=== PATIENT | female | born 1965 | race Caucasian/White ===

== ENCOUNTER 2021-04-21 05:40 | Inpatient (IN) ==
[2021-04-21] MEDS ORDERED: Ondansetron 4 MG/2 ML VIAL IVP PRN (09:39)
[2021-04-21] MEDS ORDERED: Naloxone 0.4 MG/ML INJ IVP PRN (09:39)
[2021-04-21] MEDS ORDERED: *HR* Dextrose 50 % in Water (Syg) 50 ML SYRINGE IVP PRN ×2 (10:39→21:07)
[2021-04-21] MEDS ORDERED: D5% in Water 1,000 ML IVC PRN ×2 (10:39→21:07)
[2021-04-21] MEDS ORDERED: Dextrose 4 GM Chewable Tablets PO PRN ×4 (10:39→21:07)
[2021-04-21] MEDS: Albuterol 2.5 MG/3 ML NEBULIZER IH SCH ×3 (11:28→20:38)
[2021-04-21] MEDS: Insulin LISPRO 300 UNITS/3 ML VIAL SUBQ SCH ×2 (12:53→17:25)
[2021-04-21 12:59] LABS: Adenovirus Not Detected (Not Detect); Bordetella Pertussis Not Detected (Not Detect); Chlamydophila pneumoniae Not Detected (Not Detect); Coronavirus 229E Not Detected (Not Detect); Coronavirus HKU1 Not Detected (Not Detect); Coronavirus NL63 Not Detected (Not Detect); Coronavirus OC43 Not Detected (Not Detect); Human Metapneumovirus Not Detected (Not Detect); Human Rhinovirus/Enterovirus Not Detected (Not Detect); Influenza A Subtype 2009 H1 Not Detected (Not Detect); Influenza B Not Detected (Not Detect); Mycoplasma pneumoniae Not Detected (Not Detect); Parainfluenza Virus 1 Not Detected (Not Detect); Parainfluenza Virus 2 Not Detected (Not Detect); Parainfluenza Virus 3 Not Detected (Not Detect); Parainfluenza Virus 4 Not Detected (Not Detect); Respiratory Syncytial Virus Not Detected (Not Detect); SARS-CoV-2 Not Detected (Not Detect)
[2021-04-21] MEDS: *HR* Heparin 5,000 UNIT/ML VIAL SQ SCH (17:24)
[2021-04-21] MEDS: MethylPREDNISolone 40 MG/ML VIAL IVP SCH (20:55)
[2021-04-21 21:53] LABS: Estimated Average Glucose 272 mg/dl; Hemoglobin A1C 11.1 %
[2021-04-22] MEDS: Albuterol 2.5 MG/3 ML NEBULIZER IH SCH ×4 (00:14→11:37)
[2021-04-22] MEDS: *HR* Heparin 5,000 UNIT/ML VIAL SQ SCH ×3 (05:39→22:07)
[2021-04-22 05:51] LABS: Basophils % 0.2 %; Hematocrit 47.4 % (35.3-44.9); Hemoglobin 15.2 g/dL (11.5-15.4); Immature Granulocytes % 0.7 % (0-4); Lymphocytes # 1.2 K/mcL (0.6-4.6); Lymphocytes % 9.8 %; Mean Corpuscular HGB Conc 32.1 g/dL (31.6-35.5); Mean Corpuscular Hemoglobin 28.5 pg (28.0-33.3); Mean Corpuscular Volume 88.9 fL (83.0-100.0); Mean Platelet Volume 10.5 fL (9.4-12.4); Monocytes # 0.3 K/mcL (0.0-1.3); Monocytes % 2.7 %; Neutrophils # 10.6 K/mcL (1.6-8.9); Platelet Count 166 K/mcL (140-400); Red Blood Count 5.33 M/mcL (3.82-4.97); Red Cell Distribution Width 13.4 % (11.5-14.5); Segmented Neutrophils % 86.6 %; White Blood Count 12.2 K/mcL (4.3-11.1)
[2021-04-22] MEDS: Budesonide/Formoterol 160/4.5 1 PUFF INH IH SCH (07:43)
[2021-04-22] MEDS ORDERED: Nicotine 2 MG GUM BC PRN (08:10)
[2021-04-22] MEDS: hydroCHLOROthiazide 25 MG TABLET PO SCH (08:21)
[2021-04-22] MEDS: Insulin LISPRO 300 UNITS/3 ML VIAL SUBQ SCH ×3 (08:22→17:00)
[2021-04-22] MEDS: MethylPREDNISolone 40 MG/ML VIAL IVP SCH ×2 (08:23→20:09)
[2021-04-22] MEDS: Nicotine 14 MG PATCH.TD24 TD SCH (08:55)
[2021-04-22] MEDS ORDERED: levoFLOXacin 750 MG/150 ML 750 MG/150 ML BAG IVPB SCH (09:00)
[2021-04-22 09:50] LABS: BUN/Creatinine Ratio 19 (6-26); Blood Urea Nitrogen 13 mg/dL (6-20); Calcium 9.2 mg/dL (8.6-10.3); Carbon Dioxide 41 mEq/L (23-29); Chloride 91 mEq/L (98-107); Glucose 339 mg/dL (70-105); Osmolality,Calculated 295 (280-300); Potassium 4.8 mEq/L (3.5-5.1); Sodium 136 mEq/L (136-145); eGFR For African Americans > 60 (> 60); eGFR For Non-African Americans > 60 (> 60)
[2021-04-22] MEDS ORDERED: Insulin DETEMIR 100 UNIT/ML X5UNITS SUBQ SCH (15:25)
[2021-04-22] MEDS ORDERED: Insulin DETEMIR 100 UNIT/ML X5UNITS SUBQ ONE (15:26)
[2021-04-22] MEDS ORDERED: Ipratropium/Albuterol Neb 3 ML IH PRN (15:33)
[2021-04-22] MEDS: Insulin DETEMIR 100 UNIT/ML X5UNITS SUBQ SCH (20:00)
[2021-04-23 04:49] LABS: Basophils % 0.2 %; Hematocrit 48.4 % (35.3-44.9); Hemoglobin 15.7 g/dL (11.5-15.4); Immature Granulocytes % 0.5 % (0-4); Lymphocytes # 1.5 K/mcL (0.6-4.6); Lymphocytes % 14.1 %; Mean Corpuscular HGB Conc 32.4 g/dL (31.6-35.5); Mean Corpuscular Hemoglobin 28.4 pg (28.0-33.3); Mean Corpuscular Volume 87.7 fL (83.0-100.0); Mean Platelet Volume 10.1 fL (9.4-12.4); Monocytes # 0.5 K/mcL (0.0-1.3); Monocytes % 4.4 %; Neutrophils # 8.6 K/mcL (1.6-8.9); Platelet Count 170 K/mcL (140-400); Red Blood Count 5.52 M/mcL (3.82-4.97); Red Cell Distribution Width 13.2 % (11.5-14.5); Segmented Neutrophils % 80.8 %; White Blood Count 10.6 K/mcL (4.3-11.1)
[2021-04-23 05:13] LABS: BUN/Creatinine Ratio 24 (6-26); Blood Urea Nitrogen 16 mg/dL (6-20); Calcium 9.1 mg/dL (8.6-10.3); Carbon Dioxide 40 mEq/L (23-29); Chloride 90 mEq/L (98-107); Glucose 389 mg/dL (70-105); Osmolality,Calculated 293 (280-300); Phosphorous 3.9 mg/dL (2.7-4.5); Potassium 5.1 mEq/L (3.5-5.1); Sodium 133 mEq/L (136-145); eGFR For African Americans > 60 (> 60); eGFR For Non-African Americans > 60 (> 60)
[2021-04-23 05:15] LABS: VBG HCO3 40 mEq/L (21-27); VBG PCO2 82 mmHg (41-51); VBG PO2 38 mmHg (25-50)
[2021-04-23] MEDS ORDERED: *HR* LORazepam 2 MG/ML VIAL ONE (05:51)
[2021-04-23] MEDS: *HR* LORazepam 2 MG/ML VIAL IVP ONE ×2 (06:00→06:02)
[2021-04-23] MEDS: *HR* Heparin 5,000 UNIT/ML VIAL SQ SCH ×3 (06:05→22:16)
[2021-04-23] MEDS: Budesonide/Formoterol 160/4.5 1 PUFF INH IH SCH (07:52)
[2021-04-23] MEDS: Insulin LISPRO 300 UNITS/3 ML VIAL SUBQ SCH ×3 (07:59→18:06)
[2021-04-23] MEDS: Nicotine 14 MG PATCH.TD24 TD SCH (08:03)
[2021-04-23] MEDS: levoFLOXacin 500 MG TABLET PO SCH (08:06)
[2021-04-23] MEDS: hydroCHLOROthiazide 25 MG TABLET PO SCH (08:07)
[2021-04-23] MEDS ORDERED: Albuterol 2.5 MG/3 ML NEBULIZER IH PRN (09:30)
[2021-04-23] MEDS: MethylPREDNISolone 40 MG/ML VIAL IVP SCH ×2 (09:49→20:44)
[2021-04-23] MEDS: Insulin DETEMIR 100 UNIT/ML X5UNITS SUBQ SCH ×2 (09:49→20:48)
[2021-04-23 09:52] LABS: VBG HCO3 38 mEq/L (21-27); VBG PCO2 78 mmHg (41-51); VBG PO2 60 mmHg (25-50)
[2021-04-23] MEDS: Ipratropium/Albuterol Neb 3 ML IH SCH ×3 (10:50→20:16)
[2021-04-23] MEDS: *HR* LORazepam 0.5 MG TABLET PO PRN (22:16)
[2021-04-24 02:35] LABS: Basophils % 0.1 %; Hematocrit 47.9 % (35.3-44.9); Hemoglobin 15.3 g/dL (11.5-15.4); Immature Granulocytes % 0.7 % (0-4); Lymphocytes % 11.4 %; Mean Corpuscular HGB Conc 31.9 g/dL (31.6-35.5); Mean Corpuscular Hemoglobin 27.9 pg (28.0-33.3); Mean Corpuscular Volume 87.2 fL (83.0-100.0); Mean Platelet Volume 10.2 fL (9.4-12.4); Monocytes # 0.3 K/mcL (0.0-1.3); Monocytes % 3.1 %; Neutrophils # 7.7 K/mcL (1.6-8.9); Platelet Count 166 K/mcL (140-400); Red Blood Count 5.49 M/mcL (3.82-4.97); Red Cell Distribution Width 13.2 % (11.5-14.5); Segmented Neutrophils % 84.7 %; White Blood Count 9.1 K/mcL (4.3-11.1)
[2021-04-24 02:58] LABS: BUN/Creatinine Ratio 24 (6-26); Blood Urea Nitrogen 18 mg/dL (6-20); Calcium 8.7 mg/dL (8.6-10.3); Carbon Dioxide 37 mEq/L (23-29); Chloride 90 mEq/L (98-107); Glucose 356 mg/dL (70-105); Osmolality,Calculated 294 (280-300); Potassium 5.1 mEq/L (3.5-5.1); Sodium 134 mEq/L (136-145); eGFR For African Americans > 60 (> 60); eGFR For Non-African Americans > 60 (> 60)
[2021-04-24] MEDS: Ipratropium/Albuterol Neb 3 ML IH SCH ×4 (04:10→20:26)
[2021-04-24] MEDS: *HR* Heparin 5,000 UNIT/ML VIAL SQ SCH ×3 (06:34→22:56)
[2021-04-24] MEDS: Insulin DETEMIR 100 UNIT/ML X5UNITS SUBQ SCH ×3 (07:29→22:54)
[2021-04-24] MEDS: MethylPREDNISolone 40 MG/ML VIAL IVP SCH (07:29)
[2021-04-24] MEDS: hydroCHLOROthiazide 25 MG TABLET PO SCH (07:30)
[2021-04-24] MEDS: levoFLOXacin 500 MG TABLET PO SCH (07:30)
[2021-04-24] MEDS: Insulin LISPRO 300 UNITS/3 ML VIAL SUBQ SCH ×3 (07:30→16:54)
[2021-04-24] MEDS: Nicotine 14 MG PATCH.TD24 TD SCH (07:31)
[2021-04-24] MEDS: Budesonide/Formoterol 160/4.5 1 PUFF INH IH SCH (10:40)
[2021-04-24 10:51] LABS: ABG Base Excess 11 mEq/L (-2 to 3); ABG HCO3 38 mEq/L (21-27); ABG Oxygen Saturation 93 % (95-98); ABG PCO2 59 mmHg (35-45); ABG PH 7.42 pH Units (7.32-7.45); ABG PO2 67 mmHg (85-104); ABG TCO2 40 mEq/L (20-26)
[2021-04-24] MEDS: *HR* LORazepam 0.5 MG TABLET PO PRN (22:53)
[2021-04-25] MEDS: Ipratropium/Albuterol Neb 3 ML IH SCH ×2 (04:04→08:24)
[2021-04-25 05:24] LABS: BUN/Creatinine Ratio 26 (6-26); Blood Urea Nitrogen 19 mg/dL (6-20); Calcium 8.5 mg/dL (8.6-10.3); Carbon Dioxide 37 mEq/L (23-29); Chloride 91 mEq/L (98-107); Glucose 297 mg/dL (70-105); Osmolality,Calculated 291 (280-300); Potassium 3.7 mEq/L (3.5-5.1); Sodium 134 mEq/L (136-145); eGFR For African Americans > 60 (> 60); eGFR For Non-African Americans > 60 (> 60)
[2021-04-25] MEDS: *HR* Heparin 5,000 UNIT/ML VIAL SQ SCH (05:33)
[2021-04-25 06:31] VITALS: TEMP 97.9
[2021-04-25] MEDS: levoFLOXacin 500 MG TABLET PO SCH (07:49)
[2021-04-25] MEDS: hydroCHLOROthiazide 25 MG TABLET PO SCH (07:49)
[2021-04-25] MEDS: Nicotine 14 MG PATCH.TD24 TD SCH (07:51)
[2021-04-25] MEDS: Insulin LISPRO 300 UNITS/3 ML VIAL SUBQ SCH ×2 (08:02→11:46)
[2021-04-25] MEDS: Budesonide/Formoterol 160/4.5 1 PUFF INH IH SCH (08:24)
[2021-04-25] MEDS ORDERED: predniSONE 20 MG TABLET PO SCH (09:00)
[2021-04-25] MEDS ORDERED: Insulin DETEMIR 100 UNIT/ML X5UNITS SUBQ SCH (09:00)
[2021-04-25 10:46] VITALS: BP 148/80; PULSE 87; O2SAT 91
== END 2021-04-25 15:50 | disposition home or self-care (01) | DRG 871 ==
LOC: PREOBSVTOIN 09:59 → SUATTDRO 10:01 → 2NENU 10:01
PROVIDERS: ADMIT Internal Medicine; ATTEND General Practice